=== PATIENT | male | born 1960 | race Caucasian/White ===

== ENCOUNTER 2022-11-15 11:21 | Emergency (ER) | payer MEDICARE, OTHER ==
[2022-11-15 11:39] VITALS: TEMP 97.8
[2022-11-15] MEDS ORDERED: methylPREDNISolone SOD SUCCI 125 MG/2 ML VIAL IV STA (12:12)
[2022-11-15] MEDS ORDERED: IPRATROPIUM 0.5 MG/2.5 ML NEBU INHALATION STA (12:12)
[2022-11-15] MEDS ORDERED: IPRATROPIUM-ALBUTEROL 3 ML NEB INHALATION STA (12:12)
--- NOTE | 2022-11-15 12:12 | ED ---
General Adult HPI - General Chief complaint: Shortness of Breath Stated complaint: SOB Time Seen by Provider: 11/15/22 11:40 Source: patient, RN notes reviewed, old records reviewed Mode of arrival: wheelchair Limitations: no limitations - History of Present Illness Initial comments: This is a 62-year-old male who presents emergency Department with a past medical history significant for COPD. Patient states over the last few days she's had some shortness of breath and coughing up some yellow sputum. Patient states he's had no chest pain no palpitations. Patient denies any fever chills. Patient denies any back pain. Patient's abdominal pain. Patient denies any headache numbness weakness or near syncopal episode - Related Data Previous Rx's Medication Instructions Recorded Albuterol Inhaler [Ventolin Hfa 2 puff INHALATION RT-QID #18 gm 11/15/22 Inhaler] Azithromycin [Zithromax Tri-Jared (3 500 mg PO DAILY 3 Days #3 tab 11/15/22 tabs)] predniSONE [Deltasone] 40 mg PO DAILY #8 tab 11/15/22 Allergies Allergy/AdvReac Type Severity Reaction Status Date / Time No Known Allergies Allergy Verified 11/15/22 11:39 Review of Systems ROS Statement: Those systems with pertinent positive or pertinent negative responses have been documented in the HPI. ROS Other: All systems not noted in ROS Statement are negative. Past Medical History Past Medical History: Hyperlipidemia History of Any Multi-Drug Resistant Organisms: None Reported Past Surgical History: Orthopedic Surgery Additional Past Surgical History / Comment(s): taisha ankles Past Psychological History: Anxiety, Depression Smoking Status: Current every day smoker Past Alcohol Use History: None Reported Past Drug Use History: None Reported General Exam - General Exam Comments Initial Comments: GENERAL: Patient is well-developed and well-nourished. Patient is nontoxic and well- hydrated and is in mild distress. ENT: Neck is soft and supple. No significant lymphadenopathy is noted. Oropharynx is clear. Moist mucous membranes. Neck has full range of motion without eliciting any pain. EYES: The sclera were anicteric and conjunctiva were pink and moist. Extraocular movements were intact and pupils were equal round and reactive to light. Eyelids were unremarkable. PULMONARY: Patient has expiratory wheezing. CARDIOVASCULAR: There is a regular rate and rhythm without any murmurs gallops or rubs. ABDOMEN: Soft and nontender with normal bowel sounds. SKIN: Skin is clear with no lesions or rashes and otherwise unremarkable. NEUROLOGIC: Patient is alert and oriented x3. Cranial nerves II through XII are grossly in tact. Motor and sensory are also intact. Normal speech, volume and content. Symmetrical smile. MUSCULOSKELETAL: Normal extremities with adequate strength and full range of motion. No lower extremity swelling or edema. No calf tenderness. LYMPHATICS: No significant lymphadenopathy is noted PSYCHIATRIC: Normal psychiatric evaluation. Limitations: no limitations Course Vital Signs 11/15/22 11/15/22 11/15/22 11:36 12:52 12:58 Temperature 97.8 F Pulse Rate 88 84 84 Respiratory 20 18 18 Rate Blood Pressure 114/70 O2 Sat by Pulse 96 Oximetry Medical Decision Making - Medical Decision Making EKG as interpreted by me shows a sinus rhythm at 86 bpm CO interval 249 dresses 106 QT interval 405 QTC is 448. EKG shows no ST segment elevation or depression Was pt. sent in by a medical professional or institution (, PA, [employer], urgent care, hospital, or custodial...) When possible be specific @ -No Did you speak to anyone other than the patient for history (EMS, parent, family, police, friend...)? What history was obtained from this source @ -No Did you review nursing and triage notes (agree or disagree)? Why? @ -I reviewed and agree with nursing and triage notes Were old charts reviewed (outside hosp., previous admission, EMS record, old EKG, old radiological studies, urgent care reports/EKG's, custodial records)? Report findings @ -None done Differential Diagnosis (chest pain, altered mental status, abdominal pain women, abdominal pain men, vaginal bleeding, weakness, fever, dyspnea, syncope, headache, dizziness, GI bleed, back pain, seizure, CVA, palpatations, mental health, musculoskeletal)? @ -Differential Dyspnea: Coronary syndrome, arrhythmia, tamponade, asthma, COPD, pulmonary embolism, pneumonia, pneumothorax, pulmonary effusion, anaphylaxis, diabetic ketoacidosis, flailed chest, pulmonary contusion, diaphragmatic rupture, anemia, neuromuscular, this is not meant to be an all-inclusive list. EKG interpreted by me (3pts min.). @ -As above X-rays interpreted by me (1pt min.). @ -Chest x-ray showed no acute abnormality CT interpreted by me (1pt min.). @ -None done U/S interpreted by me (1pt. min.). @ -None done What testing was considered but not performed or refused? (CT, X-rays, U/S, labs)? Why? @ -None What meds were considered but not given or refused? Why? @ -None Did you discuss the management of the patient with other professionals (professionals i.e. Dr., PA, [employer], lab, RT, psych nurse, social worker assistant, daily release and dupe printer, teacher, catapult and arresting gear officer, therapeutic case manager)? Give summary @ -No Was smoking cessation discussed for >3mins.? @ -No Was critical care preformed (if so, how long)? @ -No Were there social determinants of health that impacted care today? How? (Homelessness, low income, unemployed, alcoholism, drug addiction, transportation, low edu. Level, literacy, decrease access to med. care, long term, rehab)? @ -No Was there de-escalation of care discussed even if they declined (Discuss DNR or withdrawal of care, Hospice)? DNR status @ -No What co-morbidities impacted this encounter? (DM, HTN, Smoking, COPD, CAD, Cancer, CVA, ARF, Chemo, Hep., AIDS, mental health diagnosis, sleep apnea, morbid obesity)? @ -None Was patient admitted / discharged? Hospital course, mention meds given and route, prescriptions, significant lab abnormalities, going to OR and other pertinent info. @ -Patient came in the emergency department with a knife. Wheeze. Patient received 2 breathing treatments steroids and antibiotics. Patient was feeling considerably better and requesting to go home and follow-up as needed. Undiagnosed new problem with uncertain prognosis? @ -No Drug Therapy requiring intensive monitoring for toxicity (Heparin, Nitro, Insulin, Cardizem)? @ -No Were any procedures done? @ -No Diagnosis/symptom? @ -COPD exacerbation Acute, or Chronic, or Acute on Chronic? @ -Acute Uncomplicated (without systemic symptoms) or Complicated (systemic symptoms)? @ -Complicated Side effects of treatment? @ -No Exacerbation, Progression, or Severe Exacerbation? @ -No Poses a threat to life or bodily function? How? (Chest pain, USA, [place], pneumonia, PE, COPD, DKA, ARF, appy, cholecystitis, CVA, Diverticulitis, Homicidal, Suicidal, threat to staff... and all critical care pts) @ -Yes this could lead to hypoxia and end organ dysfunction Diagnosis/symptom? @ -Acute bronchitis Acute, or Chronic, or Acute on Chronic? @ -Acute Uncomplicated (without systemic symptoms) or Complicated (systemic symptoms)? @ -Complicated Side effects of treatment? @ -none Exacerbation, Progression, or Severe Exacerbation] @ -no Poses a threat to life or bodily function? @ -Yes this could lead to hypoxia and end organ dysfunction - Lab Data Result diagrams: 11/15/22 12:15 11/15/22 12:15 Lab Results 11/15/22 11/15/22 11/15/22 Range/Units 12:15 12:15 12:15 WBC 6.8 (3.8-10.6) k/uL RBC 4.08 L (4.30-5.90) m/uL Hgb 12.7 L (13.0-17.5) gm/dL Hct 37.9 L (39.0-53.0) % MCV 92.9 (80.0-100.0) fL MCH 31.1 (25.0-35.0) pg MCHC 33.5 (31.0-37.0) g/dL RDW 12.9 (11.5-15.5) % Plt Count 311 (150-450) k/uL MPV 7.3 Neutrophils % 65 % Lymphocytes % 26 % Monocytes % 7 % Eosinophils % 0 % Basophils % 0 % Neutrophils # 4.4 (1.3-7.7) k/uL Lymphocytes # 1.7 (1.0-4.8) k/uL Monocytes # 0.5 (0-1.0) k/uL Eosinophils # 0.0 (0-0.7) k/uL Basophils # 0.0 (0-0.2) k/uL Sodium 141 (137-145) mmol/L Potassium 4.3 (3.5-5.1) mmol/L Chloride 102 (98-107) mmol/L Carbon Dioxide 32 H (22-30) mmol/L Anion Gap 7 mmol/L BUN 13 (9-20) mg/dL Creatinine 0.69 (0.66-1.25) mg/dL Est GFR (CKD-EPI)AfAm >90 (>60 ml/min/1.73 sqM) Est GFR (CKD-EPI)NonAf >90 (>60 ml/min/1.73 sqM) Glucose 106 H (74-99) mg/dL Plasma Lactic Acid Franklyn 0.7 (0.7-2.0) mmol/L Calcium 8.6 (8.4-10.2) mg/dL Magnesium 2.4 H (1.6-2.3) mg/dL Total Bilirubin 0.4 (0.2-1.3) mg/dL AST 31 (17-59) U/L ALT 43 (4-49) U/L Alkaline Phosphatase 69 (38-126) U/L Troponin I (0.000-0.034) ng/mL NT-Pro-B Natriuret Pep pg/mL Total Protein 6.7 (6.3-8.2) g/dL Albumin 3.6 (3.5-5.0) g/dL 11/15/22 11/15/22 Range/Units 12:15 12:15 WBC (3.8-10.6) k/uL RBC (4.30-5.90) m/uL Hgb (13.0-17.5) gm/dL Hct (39.0-53.0) % MCV (80.0-100.0) fL MCH (25.0-35.0) pg MCHC (31.0-37.0) g/dL RDW (11.5-15.5) % Plt Count (150-450) k/uL MPV Neutrophils % % Lymphocytes % % Monocytes % % Eosinophils % % Basophils % % Neutrophils # (1.3-7.7) k/uL Lymphocytes # (1.0-4.8) k/uL Monocytes # (0-1.0) k/uL Eosinophils # (0-0.7) k/uL Basophils # (0-0.2) k/uL Sodium (137-145) mmol/L Potassium (3.5-5.1) mmol/L Chloride (98-107) mmol/L Carbon Dioxide (22-30) mmol/L Anion Gap mmol/L BUN (9-20) mg/dL Creatinine (0.66-1.25) mg/dL Est GFR (CKD-EPI)AfAm (>60 ml/min/1.73 sqM) Est GFR (CKD-EPI)NonAf (>60 ml/min/1.73 sqM) Glucose (74-99) mg/dL Plasma Lactic Acid Franklyn (0.7-2.0) mmol/L Calcium (8.4-10.2) mg/dL Magnesium (1.6-2.3) mg/dL Total Bilirubin (0.2-1.3) mg/dL AST (17-59) U/L ALT (4-49) U/L Alkaline Phosphatase (38-126) U/L Troponin I <0.012 (0.000-0.034) ng/mL NT-Pro-B Natriuret Pep 206 pg/mL Total Protein (6.3-8.2) g/dL Albumin (3.5-5.0) g/dL Disposition Clinical Impression: Acute exacerbation of chronic obstructive pulmonary disease, Acute bronchitis Disposition: HOME SELF-CARE Instructions (If sedation given, give patient instructions): Acute Bronchitis (ED), COPD (Chronic Obstructive Pulmonary Disease) (ED) Prescriptions: predniSONE [Deltasone] 40 mg PO DAILY #8 tab Albuterol Inhaler [Ventolin Hfa Inhaler] 2 puff INHALATION RT-QID #18 gm Azithromycin [Zithromax Tri-Jared (3 tabs)] 500 mg PO DAILY 3 Days #3 tab Is patient prescribed a controlled substance at d/c from ED?: No Referrals: None,Stated [Primary Care Provider] - 1-2 days
[2022-11-15 12:40] LABS: Basophils % (A) 0 %; Eosinophils % (A) 0 %; HCT 37.9 % (39.0-53.0); HGB 12.7 gm/dL (13.0-17.5); Lymphocytes # (A) 1.7 k/uL (1.0-4.8); Lymphocytes % (A) 26 %; MCH 31.1 pg (25.0-35.0); MCHC 33.5 g/dL (31.0-37.0); MCV 92.9 fL (80.0-100.0); Mean Platelet Volume 7.3; Monocytes # (A) 0.5 k/uL (0-1.0); Monocytes % (A) 7 %; Neutrophils # (A) 4.4 k/uL (1.3-7.7); Neutrophils % (A) 65 %; Platelet Count 311 k/uL (150-450); RBC 4.08 m/uL (4.30-5.90); RDW 12.9 % (11.5-15.5); WBC 6.8 k/uL (3.8-10.6)
[2022-11-15 12:49] LABS: ALT 43 U/L (4-49); AST 31 U/L (17-59); African American GFR (CKD) >90 (>60 ml/min/1.73 sqM); Albumin 3.6 g/dL (3.5-5.0); Alkaline Phosphatase 69 U/L (38-126); Anion Gap 7 mmol/L; Blood Urea Nitrogen 13 mg/dL (9-20); Calcium 8.6 mg/dL (8.4-10.2); Carbon Dioxide 32 mmol/L (22-30); Chloride 102 mmol/L (98-107); Glucose 106 mg/dL (74-99); Magnesium 2.4 mg/dL (1.6-2.3); Non-African American GFR(CKD) >90 (>60 ml/min/1.73 sqM); Potassium 4.3 mmol/L (3.5-5.1); Sodium 141 mmol/L (137-145); Total Bilirubin 0.4 mg/dL (0.2-1.3); Total Protein 6.7 g/dL (6.3-8.2)
[2022-11-15 12:52] VITALS: RESP 18
--- NOTE | 2022-11-15 13:05 | XR ---
EXAMINATION TYPE: XR chest 2V DATE OF EXAM: 11/15/2022 COMPARISON: NONE HISTORY: Difficulty in breathing. TECHNIQUE: Frontal and lateral views of the chest are obtained. FINDINGS: There is no suspicious focal air space opacity, pleural effusion, or pneumothorax seen. T he cardiac silhouette size is within normal limits. The osseous structures are intact. IMPRESSION: No acute cardiopulmonary process.
[2022-11-15] MEDS ORDERED: cefTRIAXone IN SWFI 1,000 MG/10 ML SYRINGE IVP STA (13:58)
[2022-11-15 14:46] VITALS: BP 123/90; PULSE 80
== END 2022-11-15 14:46 | disposition home or self-care (01) ==
LOC: EC 11:21
DX: J44.1 Chronic obstructive pulmonary disease with (acute) exacerbation (principal); J20.9 Acute bronchitis, unspecified; F17.200 Nicotine dependence, unspecified, uncomplicated; Z86.59 Personal history of other mental and behavioral disorders
CPT/HCPCS: 36415; 94640; 93005; 83880; 80053; 83605; 83735; 84484; 85025; 87040; 71046; 99285; 96374; 96375; J2930; J0696

== ENCOUNTER 2023-06-11 23:38 | Emergency (ER) | payer MEDICARE, OTHER ==
[2023-06-12 00:20] VITALS: RESP 18
--- NOTE | 2023-06-12 01:09 | ED ---
Weakness HPI - General Chief complaint: Weakness Stated complaint: Weakness Time Seen by Provider: 06/12/23 00:16 Source: EMS Mode of arrival: EMS Limitations: no limitations - History of Present Illness Initial comments: This patient is 63-year-old man presenting with complaint of generalized weakness and fatigue starting approximately 3 days ago and getting progressively worse. Patient also noted some fevers. Denies significant cough. No dyspnea. Denies chest or abdominal pain. No nausea or vomiting. He has not noted change in urination. MD Complaint: generalized weakness, lack of energy Onset/Timin -: days(s) Location: generalized Severity: mild Consistency: constant Improves with: none Worsens with: none Associated Symptoms: fever/chills - Related Data Previous Rx's Medication Instructions Recorded Albuterol Inhaler [Ventolin Hfa 2 puff INHALATION RT-QID #18 gm 11/15/22 Inhaler] Azithromycin [Zithromax Tri-Jared (3 500 mg PO DAILY 3 Days #3 tab 11/15/22 tabs)] predniSONE [Deltasone] 40 mg PO DAILY #8 tab 11/15/22 Nirmatrelvir/Ritonavir [Paxlovid 1 each PO ONCE #1 pack 06/12/23 2X150 mg-100 mg (Eua)] Allergies Allergy/AdvReac Type Severity Reaction Status Date / Time No Known Allergies Allergy Verified 11/15/22 11:39 Review of Systems ROS Statement: Those systems with pertinent positive or pertinent negative responses have been documented in the HPI. ROS Other: All systems not noted in ROS Statement are negative. Constitutional: Reports: fever, weakness ENT: Denies: congestion Respiratory: Denies: cough, dyspnea Cardiovascular: Denies: chest pain, palpitations, edema Gastrointestinal: Denies: abdominal pain, vomiting, diarrhea, constipation Genitourinary: Denies: dysuria, hematuria Musculoskeletal: Denies: back pain Skin: Denies: rash Neurological: Denies: headache, weakness, numbness Past Medical History Past Medical History: Hyperlipidemia History of Any Multi-Drug Resistant Organisms: None Reported Past Surgical History: Orthopedic Surgery Additional Past Surgical History / Comment(s): taisha ankles Past Psychological History: Anxiety, Depression Smoking Status: Current every day smoker Past Alcohol Use History: None Reported Past Drug Use History: None Reported General Exam General appearance: alert, in no apparent distress Head exam: Present: atraumatic, normocephalic Eye exam: Present: normal appearance. Absent: scleral icterus, conjunctival injection Neck exam: Present: normal inspection, full ROM. Absent: meningismus Respiratory exam: Present: normal lung sounds bilaterally. Absent: respiratory distress, wheezes, rales, rhonchi, stridor Cardiovascular Exam: Present: regular rate, normal rhythm, normal heart sounds. Absent: systolic murmur, diastolic murmur, rubs, gallop GI/Abdominal exam: Present: soft. Absent: distended, tenderness, guarding, rebound, rigid, mass Extremities exam: Present: normal inspection, normal capillary refill. Absent: pedal edema, calf tenderness Back exam: Present: normal inspection. Absent: CVA tenderness (R), CVA tenderness (L) Neurological exam: Present: alert Skin exam: Present: warm, dry, intact, normal color. Absent: rash Course Vital Signs 06/11/23 06/12/23 06/12/23 23:56 01:45 03:00 Temperature 99.8 F H Pulse Rate 95 84 81 Respiratory 18 18 18 Rate Blood Pressure 114/63 114/71 116/61 O2 Sat by Pulse 94 L 97 96 Oximetry 06/12/23 04:35 Temperature 99.2 F Pulse Rate 87 Respiratory 18 Rate Blood Pressure 114/65 O2 Sat by Pulse 93 L Oximetry EKG Findings - EKG Results: EKG: interpreted by IVAN, sinus rhythm (With frequent premature atrial complexes. Rate 96 bpm), normal axis, normal QRS, normal ST/T Medical Decision Making - Medical Decision Making The patient had chest x-ray which I interpreted as negative for acute infiltrate, pneumothorax, congestive heart failure Was pt. sent in by a medical professional or institution (, PA, TE[employer], urgent care, hospital, or half-way...) When possible be specific @ -[No] Did you speak to anyone other than the patient for history (EMS, parent, family, police, friend...)? What history was obtained from this source @ -[No] Did you review nursing and triage notes (agree or disagree)? Why? @ -[I reviewed and agree with nursing and triage notes] Were old charts reviewed (outside hosp., previous admission, EMS record, old EKG, old radiological studies, urgent care reports/EKG's, half-way records)? Report findings @ -[No old charts were reviewed] Differential Diagnosis (chest pain, altered mental status, abdominal pain women, abdominal pain men, vaginal bleeding, weakness, fever, dyspnea, syncope, headache, dizziness, GI bleed, back pain, seizure, CVA, palpatations, mental health, musculoskeletal)? @ -[Differential Fever: Pneumonia, viral URI, endocarditis, myocarditis, pericarditis, otitis, sinusitis, peritonsillar Abscess, retropharyngeal Abscess, epiglottitis, peritonitis, appendicitis, Mariajose cystitis, diverticulitis, hepatitis, colitis, UTI, PID, TOA, pyelonephritis, prostatitis, epididymitis, meningitis, encephalitis, pulmonary embolism, CVA, thyroid storm, pancreatitis, adrenal crisis, cavernous sinus thrombosis, this is not meant to be an all-inclusive list. EKG interpreted by me (3pts min.). @ -[I interpreted As above] X-rays interpreted by me (1pt min.). @ -[Interpreted as above CT interpreted by me (1pt min.). @ -[None done] U/S interpreted by me (1pt. min.). @ -[None done] What testing was considered but not performed or refused? (CT, X-rays, U/S, labs)? Why? @ -[None] What meds were considered but not given or refused? Why? @ -[None] Did you discuss the management of the patient with other professionals (professionals i.e. , PA, [employer], lab, RT, psych nurse, social services coordinator, service support representative, teacher, peace officer, trimming caser)? Give summary @ -[No] Was smoking cessation discussed for >3mins.? @ -[No] Was critical care preformed (if so, how long)? @ -[No] Were there social determinants of health that impacted care today? How? (Homelessness, low income, unemployed, alcoholism, drug addiction, transportation, low edu. Level, literacy, decrease access to med. care, [facility], rehab)? @ -[No] Was there de-escalation of care discussed even if they declined (Discuss DNR or withdrawal of care, Hospice)? DNR status @ -[No] What co-morbidities impacted this encounter? (DM, HTN, Smoking, COPD, CAD, Cancer, CVA, ARF, Chemo, Hep., AIDS, mental health diagnosis, sleep apnea, morbid obesity)? @ -[None] Was patient admitted / discharged? Hospital course, mention meds given and route, prescriptions, significant lab abnormalities, going to OR and other pertinent info. @ -[Patient is 63-year-old man with fatigue and generalized weakness as well as fevers. Patient found to have covid infection. No evidence of bacterial superinfection. The patient does appear stable for outpatient treatment at this point. I discussed appropriate further care and follow-up as well as return parameters. Undiagnosed new problem with uncertain prognosis? @ -[No] Drug Therapy requiring intensive monitoring for toxicity (Heparin, Nitro, Insulin, Cardizem)? @ -[No] Were any procedures done? @ -[No] Diagnosis/symptom? @ -[Acute Covid 19 infection Generalized weakness and fatigue Acute, or Chronic, or Acute on Chronic? @ -[Acute Uncomplicated (without systemic symptoms) or Complicated (systemic symptoms)? @ -[Uncomplicated Side effects of treatment? @ -[No] Exacerbation, Progression, or Severe Exacerbation? @ -[No] Poses a threat to life or bodily function? How? (Chest pain, USA, [place], pneumonia, PE, COPD, DKA, ARF, appy, cholecystitis, CVA, Diverticulitis, Homicidal, Suicidal, threat to staff... and all critical care pts) @ -[No] - Lab Data Result diagrams: 06/12/23 00:26 06/12/23 00:26 Lab Results 06/12/23 06/12/23 06/12/23 Range/Units 00:26 00:26 00:26 WBC 4.8 (3.8-10.6) k/uL RBC 3.99 L (4.30-5.90) m/uL Hgb 12.8 L (13.0-17.5) gm/dL Hct 37.2 L (39.0-53.0) % MCV 93.4 (80.0-100.0) fL MCH 32.1 (25.0-35.0) pg MCHC 34.4 (31.0-37.0) g/dL RDW 13.5 (11.5-15.5) % Plt Count 156 (150-450) k/uL MPV 8.1 Neutrophils % 59 % Lymphocytes % 24 % Monocytes % 13 % Eosinophils % 0 % Basophils % 1 % Neutrophils # 2.8 (1.3-7.7) k/uL Lymphocytes # 1.1 (1.0-4.8) k/uL Monocytes # 0.6 (0-1.0) k/uL Eosinophils # 0.0 (0-0.7) k/uL Basophils # 0.0 (0-0.2) k/uL Sodium 139 (137-145) mmol/L Potassium 3.8 (3.5-5.1) mmol/L Chloride 105 (98-107) mmol/L Carbon Dioxide 22 (22-30) mmol/L Anion Gap 12 mmol/L BUN 21 H (9-20) mg/dL Creatinine 0.97 (0.66-1.25) mg/dL Est GFR (CKD-EPI)AfAm >90 (>60 ml/min/1.73 sqM) Est GFR (CKD-EPI)NonAf 83 (>60 ml/min/1.73 sqM) Glucose 107 H (74-99) mg/dL Plasma Lactic Acid Franklyn 0.8 (0.7-2.0) mmol/L Calcium 7.9 L (8.4-10.2) mg/dL Total Bilirubin 0.9 (0.2-1.3) mg/dL AST 71 H (17-59) U/L ALT 55 H (4-49) U/L Alkaline Phosphatase 62 (38-126) U/L Troponin I (0.000-0.034) ng/mL Total Protein 6.2 L (6.3-8.2) g/dL Albumin 3.6 (3.5-5.0) g/dL Influenza Type A (PCR) (Not Detectd) Influenza Type B (PCR) (Not Detectd) RSV (PCR) (Not Detectd) SARS-CoV-2 (PCR) (Not Detectd) 06/12/23 06/12/23 Range/Units 00:26 00:26 WBC (3.8-10.6) k/uL RBC (4.30-5.90) m/uL Hgb (13.0-17.5) gm/dL Hct (39.0-53.0) % MCV (80.0-100.0) fL MCH (25.0-35.0) pg MCHC (31.0-37.0) g/dL RDW (11.5-15.5) % Plt Count (150-450) k/uL MPV Neutrophils % % Lymphocytes % % Monocytes % % Eosinophils % % Basophils % % Neutrophils # (1.3-7.7) k/uL Lymphocytes # (1.0-4.8) k/uL Monocytes # (0-1.0) k/uL Eosinophils # (0-0.7) k/uL Basophils # (0-0.2) k/uL Sodium (137-145) mmol/L Potassium (3.5-5.1) mmol/L Chloride (98-107) mmol/L Carbon Dioxide (22-30) mmol/L Anion Gap mmol/L BUN (9-20) mg/dL Creatinine (0.66-1.25) mg/dL Est GFR (CKD-EPI)AfAm (>60 ml/min/1.73 sqM) Est GFR (CKD-EPI)NonAf (>60 ml/min/1.73 sqM) Glucose (74-99) mg/dL Plasma Lactic Acid Franklyn (0.7-2.0) mmol/L Calcium (8.4-10.2) mg/dL Total Bilirubin (0.2-1.3) mg/dL AST (17-59) U/L ALT (4-49) U/L Alkaline Phosphatase (38-126) U/L Troponin I <0.012 (0.000-0.034) ng/mL Total Protein (6.3-8.2) g/dL Albumin (3.5-5.0) g/dL Influenza Type A (PCR) Not Detected (Not Detectd) Influenza Type B (PCR) Not Detected (Not Detectd) RSV (PCR) Not Detected (Not Detectd) SARS-CoV-2 (PCR) Detected A (Not Detectd) Disposition Clinical Impression: COVID-19 Disposition: HOME SELF-CARE Condition: Good Instructions (If sedation given, give patient instructions): Coronavirus Disease 2019 (COVID-19) Prescriptions: Nirmatrelvir/Ritonavir [Paxlovid 2X150 mg-100 mg (Eua)] 1 each PO ONCE #1 pack Is patient prescribed a controlled substance at d/c from ED?: No Referrals: None,Stated [Primary Care Provider] - 1-2 days
[2023-06-12 01:22] LABS: Basophils % (A) 1 %; Eosinophils % (A) 0 %; HCT 37.2 % (39.0-53.0); HGB 12.8 gm/dL (13.0-17.5); Lymphocytes # (A) 1.1 k/uL (1.0-4.8); Lymphocytes % (A) 24 %; MCH 32.1 pg (25.0-35.0); MCHC 34.4 g/dL (31.0-37.0); MCV 93.4 fL (80.0-100.0); Mean Platelet Volume 8.1; Monocytes # (A) 0.6 k/uL (0-1.0); Monocytes % (A) 13 %; Neutrophils # (A) 2.8 k/uL (1.3-7.7); Neutrophils % (A) 59 %; Platelet Count 156 k/uL (150-450); RBC 3.99 m/uL (4.30-5.90); RDW 13.5 % (11.5-15.5); WBC 4.8 k/uL (3.8-10.6)
[2023-06-12 01:32] LABS: ALT 55 U/L (4-49); AST 71 U/L (17-59); African American GFR (CKD) >90 (>60 ml/min/1.73 sqM); Albumin 3.6 g/dL (3.5-5.0); Alkaline Phosphatase 62 U/L (38-126); Anion Gap 12 mmol/L; Blood Urea Nitrogen 21 mg/dL (9-20); Calcium 7.9 mg/dL (8.4-10.2); Carbon Dioxide 22 mmol/L (22-30); Chloride 105 mmol/L (98-107); Glucose 107 mg/dL (74-99); Non-African American GFR(CKD) 83 (>60 ml/min/1.73 sqM); Potassium 3.8 mmol/L (3.5-5.1); Sodium 139 mmol/L (137-145); Total Bilirubin 0.9 mg/dL (0.2-1.3); Total Protein 6.2 g/dL (6.3-8.2)
--- NOTE | 2023-06-12 03:48 | XR ---
EXAM: XR Chest, 2 Views CLINICAL HISTORY: ITS.REASON XR Reason: Weakness TECHNIQUE: Frontal and lateral views of the chest. COMPARISON: No relevant prior studies available. FINDINGS: Lungs: Unremarkable. No consolidation. Pleural space: Unremarkable. No pneumothorax. Heart: Unremarkable. No cardiomegaly. Mediastinum: Unremarkable. Normal mediastinal contour. Bones/joints: Unremarkable. No acute fracture. IMPRESSION: No focal infiltrate.
[2023-06-12 05:03] VITALS: BP 114/65; PULSE 87; TEMP 99.2
== END 2023-06-12 07:41 | disposition home or self-care (01) ==
LOC: EC 23:38
DX: U07.1 COVID-19 (principal); F17.200 Nicotine dependence, unspecified, uncomplicated; Z86.59 Personal history of other mental and behavioral disorders
CPT/HCPCS: 36415; 71046; 80053; 83605; 84484; 85025; 87040; 87636; 93005; 99285

== ENCOUNTER 2023-08-11 17:26 | Inpatient (IN) | payer MEDICARE, MEDICAID ==
--- NOTE | 2023-08-11 19:40 | ED ---
General Adult HPI - General Chief complaint: Psychiatric Symptoms Stated complaint: Petitioned Time Seen by Provider: 08/11/23 18:00 Source: patient, police, RN notes reviewed, old records reviewed Mode of arrival: ambulatory Limitations: no limitations - History of Present Illness Initial comments: This is a 63-year-old male who presents to the emergency apartment in the custody of the police. [facility] did a well check on the patient and patient was making statements about wanting to kill his neighbors and believing his neighbors were involved in witchcraft and Satan is him and possibly killed his mother so he wants to kill them and he was also talking about killing himself. Patient states he does want to stay and get some help but he still thinks about killing his neighbors and killing himself. Patient denies any physical complaints today. Patient states he has not been taking any of his medications over the last few days at least - Related Data Previous Rx's Medication Instructions Recorded Albuterol Inhaler [Ventolin Hfa 2 puff INHALATION RT-QID #18 gm 11/15/22 Inhaler] Azithromycin [Zithromax Tri-Jared (3 500 mg PO DAILY 3 Days #3 tab 11/15/22 tabs)] predniSONE [Deltasone] 40 mg PO DAILY #8 tab 11/15/22 Nirmatrelvir/Ritonavir [Paxlovid 1 each PO ONCE #1 pack 06/12/23 2X150 mg-100 mg (Eua)] Allergies Allergy/AdvReac Type Severity Reaction Status Date / Time No Known Allergies Allergy Verified 08/11/23 17:34 Review of Systems ROS Statement: Those systems with pertinent positive or pertinent negative responses have been documented in the HPI. ROS Other: All systems not noted in ROS Statement are negative. Past Medical History Past Medical History: Hyperlipidemia History of Any Multi-Drug Resistant Organisms: None Reported Past Surgical History: Orthopedic Surgery Additional Past Surgical History / Comment(s): taisha ankles Past Psychological History: Anxiety, Depression Smoking Status: Current every day smoker Past Alcohol Use History: None Reported Past Drug Use History: None Reported General Exam - General Exam Comments Initial Comments: GENERAL: Patient is well-developed and well-nourished. Patient is nontoxic and well- hydrated and is in mild distress. ENT: Neck is soft and supple. No significant lymphadenopathy is noted. Oropharynx is clear. Moist mucous membranes. Neck has full range of motion without eliciting any pain. EYES: The sclera were anicteric and conjunctiva were pink and moist. Extraocular movements were intact and pupils were equal round and reactive to light. Eyelids were unremarkable. PULMONARY: Unlabored respirations. Good breath sounds bilaterally. No audible rales rhonchi or wheezing was noted. CARDIOVASCULAR: There is a regular rate and rhythm without any murmurs gallops or rubs. ABDOMEN: Soft and nontender with normal bowel sounds. SKIN: Skin is clear with no lesions or rashes and otherwise unremarkable. NEUROLOGIC: Patient is alert and oriented x3. Cranial nerves II through XII are grossly intact. Motor and sensory are also intact. Normal speech, volume and content. Symmetrical smile. MUSCULOSKELETAL: Normal extremities with adequate strength and full range of motion. No lower extremity swelling or edema. No calf tenderness. LYMPHATICS: No significant lymphadenopathy is noted PSYCHIATRIC: Patient is making homicidal statements and suicidal statements. Patient also states that he thinks his neighbors are involved and Satan is him and potentially killed his mother by casting a spell on. Patient is mildly anxious Limitations: no limitations Course Vital Signs 08/11/23 17:32 Temperature 98.2 F Pulse Rate 47 L Respiratory 18 Rate Blood Pressure 149/53 O2 Sat by Pulse 97 Oximetry Medical Decision Making - Medical Decision Making Was pt. sent in by a medical professional or institution ([facility], DIRECT SALES REPRESENTATIVE, urgent care, hospital, or care home...) When possible be specific @ -Police brought the patient into the emergency department Did you speak to anyone other than the patient for history (EMS, parent, family, police, friend...)? What history was obtained from this source @ -Please gave most of the history though patient did confirm most of Did you review nursing and triage notes (agree or disagree)? Why? @ -I reviewed and agree with nursing and triage notes Were old charts reviewed (outside hosp., previous admission, EMS record, old EKG, old radiological studies, urgent care reports/EKG's, care home records)? Report findings @ -I reviewed prior charts and prior lab work on this patient Differential Diagnosis (chest pain, altered mental status, abdominal pain women, abdominal pain men, vaginal bleeding, weakness, fever, dyspnea, syncope, headache, dizziness, GI bleed, back pain, seizure, CVA, palpatations, mental health, musculoskeletal)? @ -Differential Mental Health Depression, anxiety, bipolar, psychosis, schizophrenia, borderline personality, situational depression, adjustment disorder, behavioral disorder, brain tumor, malingering, substance abuse, encephalopathy, medication reaction, dementia, hypothyroidism, degenerative neurologic disorder, lupus.... This is not meant to be all-inclusive list EKG interpreted by me (3pts min.). @ -As above X-rays interpreted by me (1pt min.). @ -None done CT interpreted by me (1pt min.). @ -None done U/S interpreted by me (1pt. min.). @ -None done What testing was considered but not performed or refused? (CT, X-rays, U/S, labs)? Why? @ -None What meds were considered but not given or refused? Why? @ -None Did you discuss the management of the patient with other professionals (professionals i.e. , PA, DIRECT SALES REPRESENTATIVE, lab, RT, psych nurse, social services director, assistant store manager, teacher, chief mechanical officer, telehealth case manager)? Give summary @ -EPS evaluated the patient and spoke with a psychiatrist they agreed to admit the patient. Was smoking cessation discussed for >3mins.? @ -No Was critical care preformed (if so, how long)? @ -No Were there social determinants of health that impacted care today? How? (Homelessness, low income, unemployed, alcoholism, drug addiction, transportation, low edu. Level, literacy, decrease access to med. care, nursing home, rehab)? @ -No Was there de-escalation of care discussed even if they declined (Discuss DNR or withdrawal of care, Hospice)? DNR status @ -No What co-morbidities impacted this encounter? (DM, HTN, Smoking, COPD, CAD, Cancer, CVA, ARF, Chemo, Hep., AIDS, mental health diagnosis, sleep apnea, morbid obesity)? @ -None Was patient admitted / discharged? Hospital course, mention meds given and route, prescriptions, significant lab abnormalities, going to OR and other pertinent info. @ -Patient signed then and EPS was willing to take meds and admitted patient he will be sent up to the psychiatric floor Undiagnosed new problem with uncertain prognosis? @ -No Drug Therapy requiring intensive monitoring for toxicity (Heparin, Nitro, Insulin, Cardizem)? @ -No Were any procedures done? @ -No Diagnosis/symptom? @ -Psychosis Acute, or Chronic, or Acute on Chronic? @ -Acute on chronic Uncomplicated (without systemic symptoms) or Complicated (systemic symptoms)? @ -Complicated Side effects of treatment? @ -No Exacerbation, Progression, or Severe Exacerbation? @ -No Poses a threat to life or bodily function? How? (Chest pain, [place], [place], pneumonia, PE, COPD, DKA, ARF, appy, cholecystitis, CVA, Diverticulitis, Homicidal, Suicidal, threat to staff... and all critical care pts) @ -No Diagnosis/symptom? @ -Suicidal Acute, or Chronic, or Acute on Chronic? @ -Acute Uncomplicated (without systemic symptoms) or Complicated (systemic symptoms)? @ -Complicated Side effects of treatment? @ -None Exacerbation, Progression, or Severe Exacerbation] @ -No Poses a threat to life or bodily function? @ -No Diagnosis/symptom? @ -Homicidal Acute, or Chronic, or Acute on Chronic? @ -Acute Uncomplicated (without systemic symptoms) or Complicated (systemic symptoms)? @ -Complicated Side effects of treatment? @ -None Exacerbation, Progression, or Severe Exacerbation] @ -No Poses a threat to life or bodily function? @ -No Disposition Clinical Impression: Suicidal ideation, Homicidal ideation, Psychosis Disposition: ADMITTED IP TO THIS HOSP Referrals: None,Stated [Primary Care Provider] - 1-2 days Time of Disposition: 19:39
[2023-08-11] MEDS: LORazepam 1 MG TAB PO STA (20:05)
[2023-08-11 21:19] LABS: Amphetamine Screen,Urine Not Detected (NotDetected); Barbiturate Screen,Urine Not Detected (NotDetected); Benzodiazepines Screen,Urine Not Detected (NotDetected); Cocaine Screen,Urine Not Detected (NotDetected); Methadone Screen, Urine Not Detected (NotDetected); Opiate Screen,Urine Not Detected (NotDetected); Oxycodone Screen, Urine Not Detected (NotDetected); Phencyclidine Screen,Urine Not Detected (NotDetected); Tricyclic Antidepressant,Urine Not Detected (NotDetected); Urn Cannabinoid Scrn Detected (NotDetected)
[2023-08-11] MEDS ORDERED: MAGNESIUM HYDROXIDE 2,400 MG/30 ML CUP PO PRN (22:06)
[2023-08-11] MEDS ORDERED: MAG HYDROX/AL HYDROX/SIMETH 30 ML CUP PO PRN (22:06)
[2023-08-11] MEDS ORDERED: ACETAMINOPHEN TAB 325 MG TAB PO PRN (22:06)
[2023-08-11] MEDS ORDERED: BENZTROPINE MESYLATE 1 MG TAB PO PRN (22:08)
[2023-08-11] MEDS ORDERED: haloperidoL 5 MG TAB PO PRN (22:08)
[2023-08-11] MEDS ORDERED: HALOPERIDOL LACTATE 5 MG/ML 1 ML VIAL IM PRN (22:08)
[2023-08-11] MEDS ORDERED: LORazepam 1 MG TAB PO PRN (22:08)
[2023-08-11] MEDS ORDERED: LORazepam 2 MG/ML INJ IM PRN (22:08)
[2023-08-11 22:36] LABS: Appearance,Urine Clear (Clear); Bilirubin,Urine Negative (Negative); Blood,Urine Negative (Negative); Color,Urine Colorless; Glucose,Urine (UA) Negative (Negative); Ketones,Urine Negative (Negative); Leukocyte Esterase,Urine Negative (Negative); Nitrite,Urine Negative (Negative); PH, Urine 6.5 (5.0-8.0); Protein,Urine Negative (Negative); Specific Gravity,Urine 1.008 (1.001-1.035); Urobilinogen,Urine <2.0 mg/dL (<2.0)
[2023-08-12 09:20] LABS: Basophils % (A) 0 %; Eosinophils % (A) 0 %; HCT 42.8 % (39.0-53.0); HGB 14.1 gm/dL (13.0-17.5); Lymphocytes # (A) 2.1 k/uL (1.0-4.8); Lymphocytes % (A) 29 %; MCH 31.1 pg (25.0-35.0); MCHC 33.1 g/dL (31.0-37.0); MCV 94.1 fL (80.0-100.0); Mean Platelet Volume 7.9; Monocytes # (A) 0.6 k/uL (0-1.0); Monocytes % (A) 8 %; Neutrophils # (A) 4.5 k/uL (1.3-7.7); Neutrophils % (A) 61 %; Platelet Count 274 k/uL (150-450); RBC 4.54 m/uL (4.30-5.90); RDW 13.1 % (11.5-15.5); WBC 7.4 k/uL (3.8-10.6)
[2023-08-12 09:31] LABS: ALT 14 U/L (4-49); AST 23 U/L (17-59); African American GFR (CKD) >90 (>60 ml/min/1.73 sqM); Albumin 3.9 g/dL (3.5-5.0); Alkaline Phosphatase 70 U/L (38-126); Anion Gap 5 mmol/L; Blood Urea Nitrogen 12 mg/dL (9-20); Calcium 9.4 mg/dL (8.4-10.2); Carbon Dioxide 32 mmol/L (22-30); Chloride 105 mmol/L (98-107); Glucose 117 mg/dL (74-99); Non-African American GFR(CKD) >90 (>60 ml/min/1.73 sqM); Potassium 4.7 mmol/L (3.5-5.1); Sodium 142 mmol/L (137-145); Total Protein 6.7 g/dL (6.3-8.2)
[2023-08-12 09:36] LABS: Valproic Acid (Depakene) <10.0 ug/mL
[2023-08-12] MEDS: GLYCOPYRROLATE 1 MG TAB PO SCH (09:40)
[2023-08-12] MEDS: NICOTINE 21MG/24HR PATCH TRANSDERM SCH (09:40)
--- NOTE | 2023-08-12 09:43 | P.PN ---
Subjective Progress Note Date: 08/12/23 Principal diagnosis: Schizophrenia paranoid type Tardive dyskinesia Involuntary movement disorder NOS This is a psychiatric assessment Anup Magana who is a 63-year-old male with a history of schizophrenia and Patient is a poor historian at this time was laying in bed and having his orthostatic blood pressures checked since patient had recently fallen He admits that he does get dizzy when he stands up and was advised to call first the staff for help Following his and except from the assessment done in the ER which brought the patient to the hospital: presents to the emergency apartment in the custody of the police. [facility] did a well check on the patient and patient was making statements about wanting to kill his neighbors and believing his neighbors were involved in witchcraft and Satan is him and possibly killed his mother so he wants to kill them and he was also talking about killing himself. Patient states he does want to stay and get some help but he still thinks about killing his neighbors and killing himself. Patient denies any physical complaints today. Patient states he has not been taking any of his medications over the last few days at least No further details are available at the present time Condition did not express any bizarre thoughts or patterns and seemed to be cooperative Patient seems to have poor recall of his behavior but admits that he had made some inappropriate comments Patient states that he currently lives alone Social laying down was 1 112/61 The blood pressure dropped to 92/56 and patient did admit that he was feeling dizzy Past history personal social history has not been dealt with in detail at the present time due to the commotion on the unit where we have this acutely psychotic patients who is out of control and needed attention further information be collected at a later time and patient is stabilized physically also Mental status examination: Reveals a elderly male who currently appears in no acute physical distress Patient exhibits significant right arm tremor as well as his tongue tremors Patient is alert and oriented to place and person and the year Speech was appropriate Patient does admit he feels dizzy when he stood up Affect at this time remains flat Patient admits hearing voices and that he had some thoughts of wanting to hurt himself or others He currently denies any thoughts of wanting to hurt himself or others Thinking is very concrete and simple Cognitively patient appears to be intact Funds of knowledge are below average Formal and operational judgment and insight are simple and concrete Diagnostic impression: Schizophrenia paranoid type Tardive dyskinesia 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 -Medications : We'll cut back on the clozapine to 300 mg at bedtime due to orthostatic hypotension Patient has not taken his medications for some time and may respond if he goes back on a lower dose We will also discontinue the Haldol and Cogentin which may be worsening his movement disorder Patient may be a candidate for Ingrezza but I will have to check with the pharmacy if it's available in the formulary -We will further review with the patient regarding any substance abuse issues -Patient was informed of the risks, benefits and side effects of the medication and patient verbally consented to taking the medications. Patient signed med consent form and was placed in chart. -Internal Medicine consult to perform medical evaluation and physical. -NRT - nicotine patch -SW on board for discharge planning. Encourage patient to participate in groups to work on coping skills. David Urban M.D. Objective - Vital Signs Vital signs: Vital Signs Temp 97.6 F 08/12/23 06:57 Pulse 74 08/12/23 06:57 Resp 16 08/12/23 06:57 BP 112/61 08/12/23 09:26 Pulse Ox 97 08/11/23 22:58 FiO2 Intake & Output 08/11/23 08/12/23 08/12/23 18:59 06:59 18:59 Weight 99.79 kg 99.79 kg - Labs CBC & Chem 7: 08/12/23 08:48 08/12/23 08:48 Labs: Abnormal Lab Results - Last 24 Hours (Table) 08/11/23 08/12/23 Range/Units 20:25 08:48 Carbon Dioxide 32 H (22-30) mmol/L Glucose 117 H (74-99) mg/dL U Marijuana (THC) Screen Detected H (NotDetected)
[2023-08-12] MEDS: ATORVASTATIN 10 MG TAB PO SCH (21:58)
[2023-08-12] MEDS: cloZAPine 100 MG TAB PO SCH (23:50)
--- NOTE | 2023-08-13 16:22 | P.PN ---
Progress Note - Text Progress Note Date: 08/13/23 Interval History: Patient was seen bedside this morning and was directable and agreeable to speak with. Patient states that he follows with [facility] ACT team and that he has been noncompliant with clozapine for over 1 month. He had voiced paranoia regarding neighbors and several delusions prior to hospitalization. He does not express such concerns today and states that he is "much better". Overnight, patient was significantly more tremulous and therefore Clozapine was held, to be reassessed for today. He denies all concerns and is agreeable with restarting clozapine titration. His outpatient medications include clozapine 100 mg daily, 400 mg at bedtime, glycopyrrolate 2 mg twice a day, and Depakote thousand milligrams daily. He reports having been clozapine for a long time and says he sees his psychiatrist once every 2 months or so. At this time patient denies any suicidal or homicidal ideations, intent or plan. Patient denies any auditory, visual hallucinations and denies any paranoia or delusions. Patient denies any side effects from the medications and has been compliant with meds. Mental Status Exam: General Appearance: Patient appears to be stated age is alert, directable, and cooperative. Appears older than stated age Behavior: Patient is calmly seated without any agitated behavior. Resting tremor Speech: Patient's speech is fluent and nonpressured. Mood/Affect: Mood is "good", affect is congruent and constricted. Suicidality/Homicidality: Patient denies having any suicidal or homicidal ideation intent or plan. However, recently expressed SI and HI Perceptions: Patient denies any visual hallucinations and denies any auditory hallucinations Though content/process: [place]. Goal-oriented Memory and concentration: Grossly oriented Judgment and insight: Poor Assessment Schizophrenia Parkinsonism - likely induced by long-term antipsychotic treatment Clozapine-indiced orthostatic hypotension Plan: -Patient is admitted under voluntary status to MHU for stabilization of psychiatric symptoms and safety. -Medications : - QTc is 456 from 06/12/23 - Labs including CRP and troponins ordered for today. Weekly CBC per Clozapine REMS protocol - Pending labs, plan to start Clozapine 12.5 mg qHS (likely tomorrow after labs are resulted) with plan to potentially re-titrate to Clozapine 100 mg daily and 400 mg qHS (as previously prescribed outpatient) - Orthostatic vitals as ordered and fall risk prevention - Nicotine patch -Patient was informed of the risks, benefits and side effects of the medication and patient verbally consented to taking the medications. Patient signed med consent form and was placed in chart. -Internal Medicine consult to perform medical evaluation and physical. -NRT - nicotine patch -SW on board for discharge planning. Encourage patient to participate in groups to work on coping skills. Given limited hx, please attempt at contacting [facility] during the weekdays
[2023-08-13] MEDS ORDERED: cloZAPine 100 MG TAB PO SCH (21:00)
--- NOTE | 2023-08-14 02:57 | P.MDCNMH ---
History of Present Illness H&P Date: 08/14/23 Chief Complaint: Medical eval 63-year-old male with hyperlipidemia Patient was brought in by police to the hospital for evaluation due to a [facility] well check patient was making violent threats he was having delusional ideation and paranoid ideation accusing his neighbors of killing his family he denies any fever, chills, cough, sore throat, chest pain , trouble breathing , nausea , vomiting, abd pain , changes in urinary or bowel habits. review of systems Pertinent positives as noted in HPI. All other systems were reviewed and are negative on exam Constitutional: No acute distress, Eyes: Anicteric sclerae, moist conjunctiva, Pupils equal round reactive to light Lungs: Clear to auscultation Clear to percussion Normal respiratory effort, no accessory muscle use Cardiovascular: Heart regular in rate and rhythm, No murmurs, gallops, or rubs No peripheral edema Abdominal: Soft Nontender, no guarding, rebound or rigidity Abdomen moving with respiration Normoactive bowel sounds Psychiatric: Alert and oriented to person, place and time Neuro Muscles Strength 5/5 in all 4 extremities Past Medical History Past Medical History: Hyperlipidemia History of Any Multi-Drug Resistant Organisms: None Reported Past Surgical History: Orthopedic Surgery Additional Past Surgical History / Comment(s): taisha ankles Past Psychological History: Anxiety, Depression Smoking Status: Current every day smoker Past Alcohol Use History: None Reported Past Drug Use History: None Reported Medications and Allergies Home Medications Medication Instructions Recorded Confirmed Type Divalproex ER [Depakote ER] 1,000 mg PO DAILY 08/11/23 08/11/23 History Glycopyrrolate [Robinul Forte] 2 mg PO BID 08/11/23 08/11/23 History cloZAPine [Clozaril] 100 mg PO DAILY 08/11/23 08/11/23 History cloZAPine [Clozaril] 400 mg PO HS 08/11/23 08/11/23 History Allergies Allergy/AdvReac Type Severity Reaction Status Date / Time No Known Allergies Allergy Verified 08/11/23 20:08 Physical Exam Vitals: Vital Signs Temp Pulse Resp BP 08/13/23 06:12 97.4 F L 61 14 112/57 Cranial Nerve Examination - Cranial Nerves Cranial Nerve II- Optic: Intact Cranial Nerve III- Oculomotor: Intact Cranial Nerve IV- Trochlear: Intact Cranial Nerve V- Trigeminal: Intact Cranial Nerve - Abducens: Intact Cranial Nerve VII- Facial: Intact Cranial Nerve VIII- Auditory: Intact Cranial Nerve IX- Glossopharyngeal: Intact Cranial Nerve X- Vagus: Intact Cranial Nerve XI- Accessory: Intact Cranial Nerve XII- Hypoglossal: Intact Results CBC & Chem 7: 08/12/23 08:48 08/12/23 08:48 Assessment and Plan Assessment: Acute psychosis delusional ideation Violent threats Management per psych Blood work reviewed unremarkable hemoglobin white count 7.4 hemoglobin 14.1 TSH 3 unremarkable Urine drug screen positive for marijuana Urine analysis unremarkable Stable from medical standpoint Thank you for this consultation
--- NOTE | 2023-08-14 11:17 | P.PN ---
Progress Note - Text Progress Note Date: 08/14/23 Interval History: Patient was seen bedside this morning and was directable and agreeable to speak with. He is pleasant on interaction and states that he is agreeable with being on clozapine. Labs returned back normal and patient has been restarted on clozapine. He reports sleeping well. He says that he has been feeling "better". He is able to discuss paranoia regarding his neighbors with a more logical thought process. He says that he is no longer concerned about anybody being after him at this time. He endorses eating well. He denies dizziness, shortness of breath, difficulty with bowel movements, chest pain, or any other concerns at this time. He has been isolating to his room and was encouraged to participate on the milieu. At this time patient denies any suicidal or homicidal ideations, intent or plan. Patient denies any auditory, visual hallucinations and denies any paranoia or delusions. Patient denies any side effects from the medications and has been compliant with meds. Vital Signs Temp 97.5 F L 08/14/23 06:54 Pulse 59 L 08/14/23 07:58 Resp 16 08/14/23 06:54 BP 126/59 08/14/23 07:58 Pulse Ox 97 08/14/23 06:54 FiO2 Mental Status Exam: General Appearance: Patient appears to be stated age is alert, directable, and cooperative. Appears older than stated age Behavior: Patient is calmly seated without any agitated behavior. Resting tremor improving Speech: Patient's speech is fluent and nonpressured. Mood/Affect: Mood is "better", affect is congruent and constricted. Suicidality/Homicidality: Patient denies having any suicidal or homicidal ideation intent or plan. However, recently expressed SI and HI Perceptions: Patient denies any visual hallucinations and denies any auditory hallucinations Though content/process: [place]. Goal-oriented Memory and concentration: Grossly oriented Judgment and insight: Poor Assessment Schizophrenia Parkinsonism - likely induced by long-term antipsychotic treatment Clozapine-indiced orthostatic hypotension Plan: -Patient is admitted under voluntary status to MHU for stabilization of psychiatric symptoms and safety. -Medications : - QTc is 456 from 06/12/23 - Labs including CRP and troponins 08/13 wnl. ANC 4500. Weekly CBC per Clozapine REMS protocol - Clozapine 12.5 mg qHS with plan to potentially re-titrate to Clozapine 100 mg daily and 400 mg qHS (as previously prescribed outpatient) - Orthostatic vitals as ordered and fall risk prevention - Nicotine patch -Patient was informed of the risks, benefits and side effects of the medication and patient verbally consented to taking the medications. Patient signed med consent form and was placed in chart. -Internal Medicine consult to perform medical evaluation and physical. -NRT - nicotine patch -SW on board for discharge planning. Encourage patient to participate in groups to work on coping skills. Given limited hx, please attempt at contacting [facility] during the weekdays
[2023-08-14] MEDS: cloZAPine 25 MG TAB PO SCH (21:39)
--- NOTE | 2023-08-15 12:10 | P.PN ---
Progress Note - Text Progress Note Date: 08/15/23 Interval History: Patient was seen wandering the hallways and was directable and agreeable to juarez cedillo with caption writer in the office. Patient states that he is no longer thinking that his neighbors did not murder his mom. Patient states that he is feeling a little tired from the medication. Claims he is sleeping well. His appetite is well also. Spoke with patient about about starting different medications. Patient agreeable. Patient states his mood and anxiety are good today. He stated he is planning on attending groups today. At this time patient denies any suicidal or homicidal ideations, intent or plan. Patient denies any auditory, visual hallucinations and denies any paranoia or delusions. Patient denies any side effects from the medications and has been compliant with meds. Mental Status Exam: General Appearance: Patient appears to be stated age is alert, directable, and cooperative. Appears older than stated age Behavior: Patient is calmly seated without any agitated behavior. Resting tremor Speech: Patient's speech is fluent and nonpressured. Mood/Affect: Mood is "better", affect is congruent and constricted. Suicidality/Homicidality: Patient denies having any suicidal or homicidal ideation intent or plan. Denies SI and HI Perceptions: Patient denies any visual hallucinations and denies any auditory hallucinations Though content/process: [place]. 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 -Medications : discontinue Clozapine due to side effects, Add Invega 3mg qhs for psychosis, decrease glycopyrrolate to 1mg bid with plans to eventuall taper off -Orthostatic vitals as ordered and fall risk prevention -NRT - nicotine patch -SW on board for discharge planning. Encourage patient to participate in groups to work on coping skills. likely discharge by the end of the week, if patient continues to improve. patient is refusing MIRANDA.
[2023-08-15] MEDS: PALIPERIDONE 3 MG TAB.ER.24 PO SCH (22:11)
[2023-08-15] MEDS: GLYCOPYRROLATE 1 MG TAB PO SCH (22:11)
[2023-08-16 05:13] LABS: Clozapine (Clozaril) 35 ng/mL (200-700); Norclozapine <25 ng/mL (200-700)
--- NOTE | 2023-08-16 11:42 | P.PN ---
Progress Note - Text Progress Note Date: 08/16/23 Interval History: Patient was seen wandering the hallways and was directable and agreeable to sp mamadou with speech writer in the office. Patient states that he is doing "better, mentally and physically". Claims he is sleeping well. His appetite is well also. Spoke with patient about about his new medication, patient stated it is working well for him..Rehabilitation Engineer spoke with patient about participating in groups, patient agreeable. Patient is having slight tremors in his arms and legs. Patient agreeable to starting medication. At this time patient denies any suicidal or homicidal ideations, intent or plan. Patient denies any auditory, visual hallucinations and denies any paranoia or delusions. Patient denies any side effects from the medications and has been compliant with meds. Mental Status Exam: General Appearance: Patient appears to be stated age is alert, directable, and cooperative. Appears older than stated age Behavior: Patient is calmly seated without any agitated behavior. Resting tremor Speech: Patient's speech is fluent and nonpressured. Mood/Affect: Mood is "better", affect is congruent and constricted. Suicidality/Homicidality: Patient denies having any suicidal or homicidal ideation intent or plan. Denies SI and HI Perceptions: Patient denies any visual hallucinations and denies any auditory hallucinations Though content/process: [place]. 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 -Medications : Invega 3mg qhs for psychosis, add cogentin 0.5mg bid for EPS symptoms. d/c glycopyrrolate -Orthostatic vitals as ordered and fall risk prevention -NRT - nicotine patch -SW on board for discharge planning. Encourage patient to participate in groups to work on coping skills. likely discharge by the end of the week, if patient continues to improve. patient is refusing MIRANDA.
[2023-08-16] MEDS: BENZTROPINE MESYLATE 0.5 MG TAB PO SCH (12:24)
[2023-08-16] MEDS ORDERED: MAG HYDROX/AL HYDROX/SIMETH 355 ML BOTTLE PO PRN (15:27)
[2023-08-16] MEDS ORDERED: PALIPERIDONE 6 MG TAB.ER.24 PO SCH (21:00)
[2023-08-16] MEDS ORDERED: BENZTROPINE MESYLATE 0.5 MG TAB PO SCH (21:00)
[2023-08-16] MEDS: PALIPERIDONE 3 MG TAB.ER.24 PO SCH (22:04)
--- NOTE | 2023-08-17 11:35 | P.PN ---
Progress Note - Text Progress Note Date: 08/17/23 Interval History: Patient was seen in his room and was directable and agreeable to speak with wr iter in the office. Patient states that he is doing "better". Claims he is sleeping well. His appetite is well also. Patient is having slight tremors in his arms and legs, which is slightly improving. Patient states his mood and anxiety are good. At this time patient denies any suicidal or homicidal ideations, intent or plan. Patient denies any auditory, visual hallucinations and denies any paranoia or delusions. Patient denies any side effects from the medications and has been compliant with meds. Mental Status Exam: General Appearance: Patient appears to be stated age is alert, directable, and cooperative. Appears older than stated age Behavior: Patient is calmly seated without any agitated behavior. Resting tremor, mildly improving Speech: Patient's speech is fluent and nonpressured. Mood/Affect: Mood is "better", affect is congruent and constricted. mildly improving Suicidality/Homicidality: Patient denies having any suicidal or homicidal ideation intent or plan. Denies SI and HI Perceptions: Patient denies any visual hallucinations and denies any auditory hallucinations Though content/process: [place]. 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 -Medications : Invega 3mg qhs for psychosis, cogentin 0.5mg bid for EPS symptoms. -Orthostatic vitals as ordered and fall risk prevention -NRT - nicotine patch -SW on board for discharge planning. Encourage patient to participate in groups to work on coping skills. likely discharge tomorrow with his brother, if patient continues to improve. patient is refusing MIRANDA.
[2023-08-17 12:13] LABS: Basophils % (A) 1 %; Eosinophils % (A) 0 %; HCT 40.4 % (39.0-53.0); HGB 13.1 gm/dL (13.0-17.5); Lymphocytes # (A) 2.1 k/uL (1.0-4.8); Lymphocytes % (A) 30 %; MCH 30.5 pg (25.0-35.0); MCHC 32.4 g/dL (31.0-37.0); MCV 93.9 fL (80.0-100.0); Monocytes # (A) 0.7 k/uL (0-1.0); Monocytes % (A) 10 %; Neutrophils % (A) 57 %; Platelet Count 289 k/uL (150-450); RDW 13.4 % (11.5-15.5)
[2023-08-18 07:14] VITALS: TEMP 98
--- NOTE | 2023-08-18 09:35 | P.HP ---
Psychiatric H&P - . H&P Date: 08/12/23 History & Physical: Allergies Allergy/AdvReac Type Severity Reaction Status Date / Time No Known Allergies Allergy Verified 08/11/23 20:08 Vital Signs Temp 98.0 F 08/18/23 06:00 Pulse 75 08/18/23 06:00 Resp 18 08/18/23 06:00 BP 91/62 08/18/23 06:00 Pulse Ox 98 08/18/23 06:00 FiO2 Laboratory Last Values WBC 7.0 k/uL (3.8-10.6) 08/17/23 11:51 RBC 4.30 m/uL (4.30-5.90) 08/17/23 11:51 Hgb 13.1 gm/dL (13.0-17.5) 08/17/23 11:51 Hct 40.4 % (39.0-53.0) 08/17/23 11:51 MCV 93.9 fL (80.0-100.0) 08/17/23 11:51 MCH 30.5 pg (25.0-35.0) 08/17/23 11:51 MCHC 32.4 g/dL (31.0-37.0) 08/17/23 11:51 RDW 13.4 % (11.5-15.5) 08/17/23 11:51 Plt Count 289 k/uL (150-450) 08/17/23 11:51 MPV 8.0 08/17/23 11:51 Neutrophils % 57 % 08/17/23 11:51 Lymphocytes % 30 % 08/17/23 11:51 Monocytes % 10 % 08/17/23 11:51 Eosinophils % 0 % 08/17/23 11:51 Basophils % 1 % 08/17/23 11:51 Neutrophils # 4.0 k/uL (1.3-7.7) 08/17/23 11:51 Lymphocytes # 2.1 k/uL (1.0-4.8) 08/17/23 11:51 Monocytes # 0.7 k/uL (0-1.0) 08/17/23 11:51 Eosinophils # 0.0 k/uL (0-0.7) 08/17/23 11:51 Basophils # 0.0 k/uL (0-0.2) 08/17/23 11:51 Sodium 142 mmol/L (137-145) 08/12/23 08:48 Potassium 4.7 mmol/L (3.5-5.1) 08/12/23 08:48 Chloride 105 mmol/L (98-107) 08/12/23 08:48 Carbon Dioxide 32 mmol/L (22-30) H 08/12/23 08:48 Anion Gap 5 mmol/L 08/12/23 08:48 BUN 12 mg/dL (9-20) 08/12/23 08:48 Creatinine 0.82 mg/dL (0.66-1.25) 08/12/23 08:48 Est GFR (CKD-EPI)AfAm >90 (>60 ml/min/1.73 sqM) 08/12/23 08:48 Est GFR (CKD-EPI)NonAf >90 (>60 ml/min/1.73 sqM) 08/12/23 08:48 Glucose 117 mg/dL (74-99) H 08/12/23 08:[address] Glu mg/dL 117 mg/dL 08/12/23 08:48 Hemoglobin A1c 5.7 % (<=6.0) 08/12/23 08:48 Calcium 9.4 mg/dL (8.4-10.2) 08/12/23 08:48 Total Bilirubin 1.0 mg/dL (0.2-1.3) 08/12/23 08:48 AST 23 U/L (17-59) 08/12/23 08:48 ALT 14 U/L (4-49) 08/12/23 08:48 Alkaline Phosphatase 70 U/L (38-126) 08/12/23 08:48 Troponin I <0.012 ng/mL (0.000-0.034) 08/13/23 16:37 C-Reactive Protein <0.5 mg/dL (<1.0) 08/13/23 16:37 Total Protein 6.7 g/dL (6.3-8.2) 08/12/23 08:48 Albumin 3.9 g/dL (3.5-5.0) 08/12/23 08:48 TSH 3.000 mIU/L (0.465-4.680) 08/12/23 08:48 Urine Color Colorless 08/11/23 22:10 Urine Appearance Clear (Clear) 08/11/23 22:10 Urine pH 6.5 (5.0-8.0) 08/11/23 22:10 Ur Specific [place] 1.008 (1.001-1.035) 08/11/23 22:10 Urine Protein Negative (Negative) 08/11/23 22:10 Urine Glucose (UA) Negative (Negative) 08/11/23 22:10 Urine Ketones Negative (Negative) 08/11/23 22:10 Urine Blood Negative (Negative) 08/11/23 22:10 Urine Nitrite Negative (Negative) 08/11/23 22:10 Urine Bilirubin Negative (Negative) 08/11/23 22:10 Urine Urobilinogen <2.0 mg/dL (<2.0) 08/11/23 22:10 Ur Leukocyte Esterase Negative (Negative) 08/11/23 22:10 Urine Opiates Screen Not Detected (NotDetected) 08/11/23 20:25 Ur Oxycodone Screen Not Detected (NotDetected) 08/11/23 20:25 Urine Methadone Screen Not Detected (NotDetected) 08/11/23 20:25 Ur Barbiturates Screen Not Detected (NotDetected) 08/11/23 20:25 Valproic Acid <10.0 ug/mL 08/12/23 08:48 U Tricyclic Antidepress Not Detected (NotDetected) 08/11/23 20:25 Ur Phencyclidine Scrn Not Detected (NotDetected) 08/11/23 20:25 Clozapine 35 ng/mL (200-700) L 08/12/23 08:48 Norclozapine <25 ng/mL (200-700) 08/12/23 08:48 Ur Amphetamines Screen Not Detected (NotDetected) 08/11/23 20:25 U Methamphetamines Scrn Not Detected (NotDetected) 08/11/23 20:25 U Benzodiazepines Scrn Not Detected (NotDetected) 08/11/23 20:25 Urine Cocaine Screen Not Detected (NotDetected) 08/11/23 20:25 U Marijuana (THC) Screen Detected (NotDetected) H 08/11/23 20:25 SARS-CoV-2 (PCR) Not Detected (Not Detectd) 08/11/23 20:11 08/18/23 09:33 this note is entered as an H&P as it was not entered correctly in the EMR on 08/12/[address] Urban Below is Dr Urban's note "Schizophrenia paranoid type Tardive dyskinesia Involuntary movement disorder NOS This is a psychiatric assessment Anup Magana who is a 63-year-old male with a history of schizophrenia and Patient is a poor historian at this time was laying in bed and having his orthostatic blood pressures checked since patient had recently fallen He admits that he does get dizzy when he stands up and was advised to call first the staff for help Following his and except from the assessment done in the ER which brought the patient to the hospital: presents to the emergency apartment in the custody of the police. [facility] did a well check on the patient and patient was making statements about wanting to kill his neighbors and believing his neighbors were involved in witchcraft and Satan is him and possibly killed his mother so he wants to kill them and he was also talking about killing himself. Patient states he does want to stay and get some help but he still thinks about killing his neighbors and killing himself. Patient denies any physical complaints today. Patient states he has not been taking any of his medications over the last few days at least No further details are available at the present time Condition did not express any bizarre thoughts or patterns and seemed to be cooperative Patient seems to have poor recall of his behavior but admits that he had made some inappropriate comments Patient states that he currently lives alone Social laying down was 1 112/61 The blood pressure dropped to 92/56 and patient did admit that he was feeling dizzy Past history personal social history has not been dealt with in detail at the present time due to the commotion on the unit where we have this acutely psychotic patients who is out of control and needed attention further information be collected at a later time and patient is stabilized physically also Mental status examination: Reveals a elderly male who currently appears in no acute physical distress Patient exhibits significant right arm tremor as well as his tongue tremors Patient is alert and oriented to place and person and the year Speech was appropriate Patient does admit he feels dizzy when he stood up Affect at this time remains flat Patient admits hearing voices and that he had some thoughts of wanting to hurt himself or others He currently denies any thoughts of wanting to hurt himself or others Thinking is very concrete and simple Cognitively patient appears to be intact Funds of knowledge are below average Formal and operational judgment and insight are simple and concrete Diagnostic impression: Schizophrenia paranoid type Tardive dyskinesia 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 -Medications : We'll cut back on the clozapine to 300 mg at bedtime due to orthostatic hypotension Patient has not taken his medications for some time and may respond if he goes back on a lower dose We will also discontinue the Haldol and Cogentin which may be worsening his movement disorder Patient may be a candidate for Ingrezza but I will have to check with the pharmacy if it's available in the formulary -We will further review with the patient regarding any substance abuse issues -Patient was informed of the risks, benefits and side effects of the medication and patient verbally consented to taking the medications. Patient signed med consent form and was placed in chart. -Internal Medicine consult to perform medical evaluation and physical. -NRT - nicotine patch -SW on board for discharge planning. Encourage patient to participate in groups to work on coping skills. David Urban M.D."
--- NOTE | 2023-08-18 09:47 | P.DS ---
Providers Date of admission: 08/11/23 22:04 Expected date of discharge: 08/18/23 Attending physician: Liam Man MD Consults: 08/11/23 22:06 Consult Physician Routine Consulting Provider: Fiona Hollingsworth Consult Reason/Comments: H&P Do you want consulting provider notified?: Yes Primary care physician: Stated None - Discharge Diagnosis(es) (1) Schizophrenia Current Visit: Yes Status: Acute Priority: High (2) Parkinsonism Current Visit: Yes Status: Acute Priority: Low (3) Orthostatic hypotension Current Visit: Yes Status: Acute Priority: Medium Hospital Course: Admission HPI: Admission note was completed by Dr Urban "This is a psychiatric assessment Anup Magana who is a 63-year-old male with a history of schizophrenia and Patient is a poor historian at this time was laying in bed and having his orthostatic blood pressures checked since patient had recently fallen He admits that he does get dizzy when he stands up and was advised to call first the staff for help Following his and except from the assessment done in the ER which brought the patient to the hospital: presents to the emergency apartment in the custody of the police. [facility] did a well check on the patient and patient was making statements about wanting to kill his neighbors and believing his neighbors were involved in witchcraft and Satan is him and possibly killed his mother so he wants to kill them and he was also talking about killing himself. Patient states he does want to stay and get some help but he still thinks about killing his neighbors and killing himself. Patient denies any physical complaints today. Patient states he has not been taking any of his medications over the last few days at least No further details are available at the present time Condition did not express any bizarre thoughts or patterns and seemed to be cooperative Patient seems to have poor recall of his behavior but admits that he had made some inappropriate comments Patient states that he currently lives alone" Hospital course: Upon admission to the unit patient was directable and agreeable to commence treatment and signed adult voluntary form. Patient mainly kept to himself while on the unit however with time and treatment he eventually got along well with other patients on the unit and followed unit protocol. Patient was compliant with the medications and denied any side effects throughout hospital course. Patient was started on Invega 3 mg nightly for psychosis, Cogentin 0.5 mg twice daily for EPS symptoms. Patient did have mild tremors however with treatment they improved significantly. Patient spoke of his stressors and engaged in therapy both group and individual. Patient was also seen by medical team for history and physical exam. Throughout the course of the hospitalization patient gradually improved with regards to mood, anxiety, paranoia, psychosis, sleep and returned back to their baseline level of functioning. On the day of discharge patient denied any suicidal or homicidal ideations intent or plan denied any auditory or visual hallucinations. Patient endorsed wanting to live for his future and his family. The patient denied any access to guns or weapons. Patient denied any paranoia and did not endorse any delusions. Patient does not have a significant history of substance abuse and was counseled on abstaining from all substances including alcohol and marijuana. Patient was also counseled on the medications and need for regular compliance and was encouraged to follow-up with their outpatient appointment for mental health and also for primary care. Prior to discharge a family meeting will be arranged by child welfare social worker to answer any questions and ensure safety upon discharge. Patient's brother will pick him up today, patient will be following up with Dr. Hernandez at [facility]. Mental status exam: General Appearance: Patient appears to be unshaven, stated age is alert, pleasant, and cooperative. Patient is in no acute distress and has improved hygiene and grooming Behavior: Patient is calmly seated without any agitated behavior. Mild resting tremor. Cooperative. Speech: Patient's speech is fluent and nonpressured. Mood/Affect: Patient reports their mood is "good", affect is congruent Suicidality/Homicidality: Patient denies having any suicidal or homicidal ideation intent or plan. Perceptions: Patient denies any auditory or visual hallucinations. Though content/process: There is no evidence of any delusional thought content and thought process is linear and goal-directed. [place] Memory and concentration: AOX3, grossly intact for the purposes of this session. Can spell "WORLD" backwards correctly. Judgment and insight: Chronically limited, improved with guarded prognosis Impression: Schizophrenia Parkinsonism - likely induced by long-term antipsychotic treatment orthostatic hypotension Plan: -Continue with discharge today as patient has improved and stabilized psychiatrically and is not currently an imminent threat to himself and/or others. Patient will remain at chronically elevated risk for harm to self and/or others due to his chronic mental illness. -Continue medications: Cogentin 0.5 mg twice daily for EPS prophylaxis/tremors, Invega p.o. 3 mg nightly for psychosis. -Patient was counseled on the need for medication compliance and appropriate follow-up at mental health and also primary care for medical issues. Patient verbalized understanding and agreed. -Social work to arrange for and conduct family meeting to ensure safety upon discharge and answer any questions/concerns. Social work also to arrange for patients follow up appointments with [facility] for psychiatric care along with follow up with primary care provider. -Patient counseled on abstaining from recreational drugs and marijuana and alcohol. Was informed/educated on the adverse effects on their physical and mental health. Patient verbally agreed and understood. -Patient was instructed to return to the hospital or seek immediate medical care if their psychiatric or medical symptoms do worsen or reoccur. Allergies Allergy/AdvReac Type Severity Reaction Status Date / Time No Known Allergies Allergy Verified 08/11/23 20:08 Laboratory Results WBC 7.0 k/uL (3.8-10.6) 08/17/23 11:51 RBC 4.30 m/uL (4.30-5.90) 08/17/23 11:51 Hgb 13.1 gm/dL (13.0-17.5) 08/17/23 11:51 Hct 40.4 % (39.0-53.0) 08/17/23 11:51 MCV 93.9 fL (80.0-100.0) 08/17/23 11:51 MCH 30.5 pg (25.0-35.0) 08/17/23 11:51 MCHC 32.4 g/dL (31.0-37.0) 08/17/23 11:51 RDW 13.4 % (11.5-15.5) 08/17/23 11:51 Plt Count 289 k/uL (150-450) 08/17/23 11:51 MPV 8.0 08/17/23 11:51 Neutrophils % 57 % 08/17/23 11:51 Lymphocytes % 30 % 08/17/23 11:51 Monocytes % 10 % 08/17/23 11:51 Eosinophils % 0 % 08/17/23 11:51 Basophils % 1 % 08/17/23 11:51 Neutrophils # 4.0 k/uL (1.3-7.7) 08/17/23 11:51 Lymphocytes # 2.1 k/uL (1.0-4.8) 08/17/23 11:51 Monocytes # 0.7 k/uL (0-1.0) 08/17/23 11:51 Eosinophils # 0.0 k/uL (0-0.7) 08/17/23 11:51 Basophils # 0.0 k/uL (0-0.2) 08/17/23 11:51 Sodium 142 mmol/L (137-145) 08/12/23 08:48 Potassium 4.7 mmol/L (3.5-5.1) 08/12/23 08:48 Chloride 105 mmol/L (98-107) 08/12/23 08:48 Carbon Dioxide 32 mmol/L (22-30) H 08/12/23 08:48 Anion Gap 5 mmol/L 08/12/23 08:48 BUN 12 mg/dL (9-20) 08/12/23 08:48 Creatinine 0.82 mg/dL (0.66-1.25) 08/12/23 08:48 Est GFR (CKD-EPI)AfAm >90 (>60 ml/min/1.73 sqM) 08/12/23 08:48 Est GFR (CKD-EPI)NonAf >90 (>60 ml/min/1.73 sqM) 08/12/23 08:48 Glucose 117 mg/dL (74-99) H 08/12/23 08:[address] Glu mg/dL 117 mg/dL 08/12/23 08:48 Hemoglobin A1c 5.7 % (<=6.0) 08/12/23 08:48 Calcium 9.4 mg/dL (8.4-10.2) 08/12/23 08:48 Total Bilirubin 1.0 mg/dL (0.2-1.3) 08/12/23 08:48 AST 23 U/L (17-59) 08/12/23 08:48 ALT 14 U/L (4-49) 08/12/23 08:48 Alkaline Phosphatase 70 U/L (38-126) 08/12/23 08:48 Troponin I <0.012 ng/mL (0.000-0.034) 08/13/23 16:37 C-Reactive Protein <0.5 mg/dL (<1.0) 08/13/23 16:37 Total Protein 6.7 g/dL (6.3-8.2) 08/12/23 08:48 Albumin 3.9 g/dL (3.5-5.0) 08/12/23 08:48 TSH 3.000 mIU/L (0.465-4.680) 08/12/23 08:48 Urine Color Colorless 08/11/23 22:10 Urine Appearance Clear (Clear) 08/11/23 22:10 Urine pH 6.5 (5.0-8.0) 08/11/23 22:10 Ur Specific [place] 1.008 (1.001-1.035) 08/11/23 22:10 Urine Protein Negative (Negative) 08/11/23 22:10 Urine Glucose (UA) Negative (Negative) 08/11/23 22:10 Urine Ketones Negative (Negative) 08/11/23 22:10 Urine Blood Negative (Negative) 08/11/23 22:10 Urine Nitrite Negative (Negative) 08/11/23 22:10 Urine Bilirubin Negative (Negative) 08/11/23 22:10 Urine Urobilinogen <2.0 mg/dL (<2.0) 08/11/23 22:10 Ur Leukocyte Esterase Negative (Negative) 08/11/23 22:10 Urine Opiates Screen Not Detected (NotDetected) 08/11/23 20:25 Ur Oxycodone Screen Not Detected (NotDetected) 08/11/23 20:25 Urine Methadone Screen Not Detected (NotDetected) 08/11/23 20:25 Ur Barbiturates Screen Not Detected (NotDetected) 08/11/23 20:25 Valproic Acid <10.0 ug/mL 08/12/23 08:48 U Tricyclic Antidepress Not Detected (NotDetected) 08/11/23 20:25 Ur Phencyclidine Scrn Not Detected (NotDetected) 08/11/23 20:25 Clozapine 35 ng/mL (200-700) L 08/12/23 08:48 Norclozapine <25 ng/mL (200-700) 08/12/23 08:48 Ur Amphetamines Screen Not Detected (NotDetected) 08/11/23 20:25 U Methamphetamines Scrn Not Detected (NotDetected) 08/11/23 20:25 U Benzodiazepines Scrn Not Detected (NotDetected) 08/11/23 20:25 Urine Cocaine Screen Not Detected (NotDetected) 08/11/23 20:25 U Marijuana (THC) Screen Detected (NotDetected) H 08/11/23 20:25 SARS-CoV-2 (PCR) Not Detected (Not Detectd) 08/11/23 20:11 Vital Signs Temp 98.0 F 08/18/23 06:00 Pulse 75 08/18/23 06:00 Resp 18 08/18/23 06:00 BP 91/62 08/18/23 06:00 Pulse Ox 98 08/18/23 06:00 FiO2 Patient Condition at Discharge: Stable Plan - Discharge Summary Discharge Rx Participant: No New Discharge Prescriptions: New Benztropine Mesylate [Cogentin] 0.5 mg PO BID 30 Days #60 tab Paliperidone [Invega] 3 mg PO HS 30 Days #30 tab Atorvastatin [Lipitor] 10 mg PO HS 30 Days #30 tab Discontinued cloZAPine [Clozaril] 100 mg PO DAILY Glycopyrrolate [Robinul Forte] 2 mg PO BID Divalproex ER [Depakote ER] 1,000 mg PO DAILY cloZAPine [Clozaril] 400 mg PO HS Discharge Medication List Atorvastatin [Lipitor] 10 mg PO HS 30 Days #30 tab 08/18/23 [Rx] Benztropine Mesylate [Cogentin] 0.5 mg PO BID 30 Days #60 tab 08/18/23 [Rx] Paliperidone [Invega] 3 mg PO HS 30 Days #30 tab 08/18/23 [Rx] Follow up Appointment(s)/Referral(s): [facility] [Outside] - 08/18/23 11:00 am (08/18/23 @ 11am with [facility] 08/19/23 @ 10am [address] Dr[address] Courtney in [place]) [facility] - 1 Week Patient Instructions/Handouts: Parkinson Disease (DC), Schizophrenia (DC), Hypotension (GEN) Activity/Diet/Wound Care/Special Instructions: Avoid the use of street drugs and alcohol. Take all medications as prescribed. When you are in need of refills on your medications, please contact your medical provider and/or outpatient psychiatrist/provider to have this done. Please go to your scheduled outpatient appointment for aftercare treatment. If symptoms return or become worse, call the crisis line at and/or go to the nearest emergency room for evaluation. National Suicide Hotline 988. Discharge Disposition: HOME SELF-CARE
[2023-08-18 11:05] VITALS: BP 109/56; PULSE 80; RESP 20
== END 2023-08-18 11:23 | disposition home or self-care (01) | DRG 885 ==
LOC: EC 17:26 → 3MHU 22:04
PROVIDERS: ADMIT Psychiatry & Neurology Psychiatry; ATTEND Psychiatry & Neurology Psychiatry
DX: F20.0 Paranoid schizophrenia (principal); R45.851 Suicidal ideations; R45.850 Homicidal ideations; G20.C Parkinsonism, unspecified; I95.2 Hypotension due to drugs; Z11.52 Encounter for screening for COVID-19; E78.5 Hyperlipidemia, unspecified; G24.01 Drug induced subacute dyskinesia; T42.4X5A Adverse effect of benzodiazepines, initial encounter; F17.210 Nicotine dependence, cigarettes, uncomplicated; Z71.6 Tobacco abuse counseling; Z79.899 Other long term (current) drug therapy; Z71.51 Drug abuse counseling and surveillance of drug abuser; Z71.41 Alcohol abuse counseling and surveillance of alcoholic
CPT/HCPCS: 80053; 80159; 80164; 80306; 81003; 82075; 83036; 84443; 84484; 85025; 86140; 87635; 99285